=== PATIENT | female | born 1945 | race Caucasian/White ===

== ENCOUNTER 2018-05-12 08:44 | Emergency (ER) | payer MEDICARE ==
[~2018-05-12] VITALS: Ht 160 cm; Wt 65.8 kg
[~2018-05-12 08:44] MED LIST: ACETAMINOPHEN650 M5 PO; CIPRO250 M1 PO; OMEPRAZOLE40 MG PO
[2018-05-12 09:54] LABS: INFLUENZA A ANTIGEN None Detected (None Detect); INFLUENZA B ANTIGEN None Detected (None Detect)
[2018-05-12] MEDS ORDERED: TUSSIONEX PENN115 ML PO (10:34)
[2018-05-12] MEDS ORDERED: AZITHROMYCIN 2250 MG PO (10:34)
[2018-05-12 11:08] VITALS: BP 153/63
== END 2018-05-12 11:09 | disposition home or self-care (01) ==
LOC: M.ERS 08:44
PROVIDERS: Personal Emergency Response Attendant
DX: J40 Bronchitis, not specified as acute or chronic (principal); Z90.710 Acquired absence of both cervix and uterus

== ENCOUNTER → 2018-09-09 | Outpatient (CLI) | payer MEDICARE ==
[~2018-09-09] MED LIST changes: +AZITHROMYCIN 2250 MG PO; +TUSSIONEX PENN115 ML PO
== END ==
LOC: M.ULTRA 12:44
DX: R22.1 Localized swelling, mass and lump, neck (principal)

== ENCOUNTER 2019-01-27 13:31 | Observation (INO) | payer MEDICARE ==
[~2019-01-27] VITALS: Ht 160 cm; Wt 65.8 kg
[2019-01-27 13:37] VITALS: BP 163/70
[2019-01-27 14:02] LABS: ABSOLUTE BASOPHILS 0.2 thou/uL (0.0-0.2); ABSOLUTE LYMPHOCYTES 1.6 thou/uL (0.8-5.3); ABSOLUTE MONOCYTES 0.5 thou/uL (0.0-1.2); ABSOLUTE NEUTROPHILS 7.2 thou/uL (1.6-8.1); BASOPHILS 2.4 %; EOSINOPHILS 0.2 %; HEMATOCRIT 40.9 % (37.0-47.0); HEMOGLOBIN 13.9 gm/dL (12.0-15.0); LYMPHOCYTES 16.9 %; MCHC 34.1 g/dL (28.0-37.0); MCV 85.2 fL (80.0-100.0); MONOCYTES 5.2 %; MPV 7.5 fl. (7.2-11.1); NUCLEATED RBCS 0 /100WBC; PLATELET COUNT* 358 thou/uL (150-400); POLYS 75.3 %; RDW-CV 13.7 % (10.5-14.5); WBC 9.5 thou/uL (4.0-11.0)
[2019-01-27 14:14] LABS: INR 1.2; PROTIME 11.8 Seconds (9.20-11.50)
[2019-01-27 14:18] LABS: CALCIUM 9.2 mg/dL (8.5-10.1); CREATININE 0.7 mg/dL (0.6-1.3)
[2019-01-27 14:20] LABS: INFLUENZA A ANTIGEN Negative (Negative); INFLUENZA B ANTIGEN Negative (Negative)
[2019-01-27 14:22] LABS: ALBUMIN 3.5 g/dL (3.4-5.0); TOTAL BILIRUBIN 0.5 mg/dL (<0.1-1.0); TOTAL PROTEIN 7.8 g/dL (6.4-8.2)
--- NOTE | 2019-01-27 16:47 | EKG ---
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1945 Requested By: Ender Morgan Order Number: [id number] MD: Luis Daniel Campos Measurements Intervals [place] Rate: 89 P: 62 WI: 189 QRS: 24 QRSD: 82 T: 36 QT: 370 QTc: 451 Interpretive Statements Sinus rhythm Baseline wander in lead(s) V6 Compared to ECG 05/05/2014 05:23:37 No significant changes Electronically Signed On 01-27-2019 16:46:43 RO[address] GRADER OPERATOR by Luis Daniel Campos [email or web address] <ELECTRONICALLY SIGNED> By: Luis Daniel Campos MD, [facility] 01/27/19 1646 1337 36 Luis Daniel Campos MD, FAC /EPI
[2019-01-27 17:28] VITALS: BP 133/48
[2019-01-27 17:56] VITALS: BP 129/71
--- NOTE | 2019-01-27 18:00 | NUR ---
PT ADMITTED TO ROOM 312 AROUND 1730 WITH DX VIRAL SYNDROME. PT REPORTS FEELING A GENERALIZED WEAKNESS. NO C/O N/V AT THIS TIME. SON AT BEDSIDE. IVF INFUSING. AFEBRILE. NO OTHER CONCERNS AT THIS TIME. CLWR. WCTM.
[2019-01-27] MEDS ORDERED: FOSAMAX 70 MG T70 MG PO (18:09)
[2019-01-27 20:15] VITALS: BP 149/69
--- NOTE | 2019-01-28 05:19 | NUR ---
PT SLEPT MOST OF SHIFT. ASSESSMENT DOCUMENTED. MEDS GIVEN PER E-MAR. IV PATENT, FLUIDS INFUSING. PT REPORTED HEADACHE AND NAUSEA, MEDS GIVEN PER E-MAR. FALL PRECAUTIONS IN PLACE. WILL CONTINUE WITH PLAN OF CARE.
[2019-01-28 08:00] VITALS: BP 146/62
[2019-01-28] MEDS ORDERED: AZITHROMYCIN250 MG PO (16:27)
--- NOTE | 2019-01-28 17:05 | NUR ---
PT UP IN ROOM WITH STEADY GAIT. IVF INFUSING. PT REPORTS FEELING BETTER TODAY. TOLERATING PO WELL
[2019-01-28 17:33] VITALS: BP 146/62
== END 2019-01-28 18:37 | disposition home or self-care (01) ==
LOC: M.ERS 13:31 → M.TBA-ER 15:16 → M.3W 17:32
PROVIDERS: Family Medicine; ADMIT Family Medicine
DX: B34.9 Viral infection, unspecified (principal); E86.9 Volume depletion, unspecified; R53.1 Weakness; K21.9 Gastro-esophageal reflux disease without esophagitis; M81.0 Age-related osteoporosis without current pathological fracture; R07.89 Other chest pain; Z79.899 Other long term (current) drug therapy

== ENCOUNTER → 2019-02-19 | Outpatient (CLI) | payer MEDICARE ==
[~2019-02-19] MED LIST changes: +AZITHROMYCIN250 MG PO; +FOSAMAX 70 MG T70 MG PO
== END ==
LOC: M.RAD 13:34
DX: J01.00 Acute maxillary sinusitis, unspecified (principal)

== ENCOUNTER 2019-11-15 10:43 | Emergency (ER) | payer MEDICARE ==
[~2019-11-15] VITALS: Ht 160 cm; Wt 68.0 kg
[2019-11-15] MEDS ORDERED: PRINIVIL10 MG PO (10:57)
[2019-11-15 11:41] LABS: ABSOLUTE LYMPHOCYTES 1.5 thou/uL (0.8-5.3); ABSOLUTE MONOCYTES 0.8 thou/uL (0.0-1.2); BASOPHILS 0.4 %; EOSINOPHILS 0.1 %; HEMATOCRIT 40.2 % (37.0-47.0); HEMOGLOBIN 13.7 gm/dL (12.0-15.0); LYMPHOCYTES 13.3 %; MCV 85.3 fL (80.0-100.0); MONOCYTES 7.1 %; MPV 7.3 fl. (7.2-11.1); NUCLEATED RBCS 0 /100WBC; PLATELET COUNT* 341 thou/uL (150-400); POLYS 79.1 %; RBC 4.72 mil/uL (4.20-5.00); RDW-CV 13.6 % (10.5-14.5); WBC 11.4 thou/uL (4.0-11.0)
[2019-11-15 11:50] LABS: CALCIUM 8.5 mg/dL (8.5-10.1); CREATININE 0.9 mg/dL (0.6-1.3); POTASSIUM 4.1 mmol/L (3.5-5.1)
[2019-11-15 11:55] LABS: ALBUMIN 3.5 g/dL (3.4-5.0); TOTAL BILIRUBIN 0.7 mg/dL (<0.1-1.0); TOTAL PROTEIN 7.2 g/dL (6.4-8.2)
[2019-11-15 12:00] LABS: INFLUENZA A ANTIGEN Negative (Negative); INFLUENZA B ANTIGEN Negative (Negative)
[2019-11-15] MEDS ORDERED: ZPAK PO ×2 (12:12→12:16)
[2019-11-15] MEDS ORDERED: CEFPODOXIME PR200 M1 PO (12:15)
[2019-11-15 12:29] VITALS: BP 128/55
--- NOTE | 2019-11-16 09:35 | EKG ---
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1945 Requested By: Jose Shipley Order Number: [id number] MD: Igor Fisher Measurements Intervals [place] Rate: 97 P: 60 UT: 193 QRS: 30 QRSD: 86 T: 45 QT: 357 QTc: 454 Interpretive Statements Sinus rhythm Borderline low voltage, extremity leads Compared to ECG 01/27/2019 13:37:50 No significant changes Electronically Signed On 11-16-2019 9:35:25 CDT by Igor Fisher [email or web address] <ELECTRONICALLY SIGNED> By: Igor Fisher MD, [facility] 11/16/19 0935 1106 1106 Igor Fisher MD, [facility] /EPI
== END 2019-11-15 12:29 | disposition home or self-care (01) ==
LOC: M.ERS 10:43
PROVIDERS: Emergency Medicine
DX: J40 Bronchitis, not specified as acute or chronic (principal); Z20.828 Contact with and (suspected) exposure to other viral communicable diseases; I10 Essential (primary) hypertension; Z90.710 Acquired absence of both cervix and uterus